=== PATIENT | female | born 1940 | race Two or more races ===

== ENCOUNTER 2018-12-16 18:56 | Inpatient (IN) | payer MEDICARE ==
[~2018-12-16] VITALS: Ht 160 cm; Wt 65.8 kg
--- NOTE | 2018-12-16 19:05 | NUR ---
ED Nurse Note: brought in by ambulance from [facility] due to patient being altered while receiving chemo tx. Patient was not acting herself per staff. Patient also has low pulse oximetry reading 90% on room air. Providing 3L via N/C. ERMD seen Pt at bedside.
--- NOTE | 2018-12-16 19:40 | NUR ---
ED Nurse Note: Blood sample sent to lab.
[2018-12-16 19:47] LABS: HEMATOCRIT 35.9 % (37.0-47.0); HEMOGLOBIN 11.5 G/DL (12.0-16.0); MEAN CORPUSCULAR VOLUME 86 FL (80-99); PLATELET COUNT 243 K/UL (150-450); RED BLOOD COUNT 4.15 M/UL (4.20-5.40); RED CELL DISTRIBUTION WIDTH 14.5 % (11.6-14.8); WHITE BLOOD COUNT 18.2 K/UL (4.8-10.8)
[2018-12-16 20:00] VITALS: BP 98/60
[2018-12-16 20:02] LABS: ANION GAP 9 mmol/L (5-15); BLOOD UREA NITROGEN 33 mg/dL (7-18); CALCIUM 9.2 MG/DL (8.5-10.1); CARBON DIOXIDE 24 MMOL/L (21-32); CHLORIDE 101 MMOL/L (98-107); CREATININE 1.4 MG/DL (0.55-1.30); POTASSIUM 3.6 MMOL/L (3.5-5.1); SODIUM 134 MMOL/L (136-145)
[2018-12-16 20:06] LABS: ALANINE AMINOTRANSFERASE 21 U/L (12-78); ALBUMIN 2.7 G/DL (3.4-5.0); ALBUMIN/GLOBULIN RATIO 0.6 (1.0-2.7); ALKALINE PHOSPHATASE 84 U/L (46-116); ASPARTATE AMINO TRANSFERASE 42 U/L (15-37); BILIRUBIN,TOTAL 0.7 MG/DL (0.2-1.0)
--- NOTE | 2018-12-16 21:00 | NUR ---
ED Nurse Note: Urine sample sent to lab.
[2018-12-16 22:04] LABS: APPEARANCE,URINE CLEAR; BILIRUBIN, URINE NEGATIVE (NEGATIVE); COLOR,URINE PALE YELLOW; GLUCOSE, URINE (UA) NEGATIVE (NEGATIVE); KETONES,URINE NEGATIVE (NEGATIVE); LEUKOCYTE ESTERASE ,URINE 3+ (NEGATIVE); NITRITE,URINE NEGATIVE (NEGATIVE); PH,URINE 5 (4.5-8.0); PROTEIN,URINE NEGATIVE (NEGATIVE); UROBILINOGEN,URINE NORMAL MG/DL (0.0-1.0)
--- NOTE | 2018-12-16 22:42 | Emergency Room Report ---
History of Present Illness General Chief Complaint: Altered Mental Status Source: Patient Present Illness HPI Patient presents emergency department today complaining acute altered mental status. Patient has a history of metastatic breast cancer. Patient was receiving an infusion herceptin and then began to develop riders. Patient was given Benadryl and Decadron and Demerol. Subsequently patient became acutely altered. EMS was contacted and patient was by her further evaluation. No other complaints are noted. Patient still was altered. On arrival although significantly improved. She still confused about dates and appear very weak. She denies any seizure activity. She seems very cold and tremulous. No evidence of focal weakness. No prior episodes of this.No other modifying factors. No other associated signs and symptoms. No other complaints were noted. 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 Hx Gastrointestinal Problems: Yes Review of Systems All Other Systems: negative except mentioned in HPI Physical Exam Vital Signs Date Time Temp Pulse Resp B/P (MAP) Pulse Ox O2 Delivery O2 Flow Rate FiO2 12/16/18 18:57 99.7 113 18 98/61 99 Room Air Sp02 EP Interpretation: reviewed, normal General Appearance: alert, moderate distress - Confused Head: atraumatic Eyes: bilateral eye normal inspection ENT: normal ENT inspection, hearing grossly normal, normal voice Neck: normal inspection, full range of motion, supple, no bony tend Respiratory: normal inspection, lungs clear, normal breath sounds, no respiratory distress, no retraction, no wheezing Cardiovascular #1: regular rate, rhythm, no edema Gastrointestinal: normal inspection, normal bowel sounds, non tender, soft, no guarding, no hernia Genitourinary: no CVA tenderness Musculoskeletal: normal inspection, back normal, normal range of motion Neurologic: normal inspection, alert, responsive, speech normal Psychiatric: judgement/insight normal, depressed affect Skin: normal inspection, normal color, no rash Medical Decision Making Diagnostic Impression: Primary Impression: Altered mental status Additional Impression: Metastatic breast cancer ER Course Patient presents emergency department today with acute altered mental status. Differential considerations include CVA, seizure, allergic reaction, altered mental status secondary to medication just name a few.Given the severity of the patient's presentation I felt this is a highly complex patient. This patient required extensive workup. Patient's laboratory workup was not impressive except for elevated white blood cell count which we secondary to stress reaction versus seizure. We'll obtain blood cultures and evaluate. Patient's head CT was negative. Chest x-ray shows large amount of masses in the lungs. This is consistent with patient's diagnosis of metastatic breast cancer. Because patient remains altered will admit the patient further evaluation. Case discussed with Dr. Herrera for admission. Labs Test 12/16/18 19:40 12/16/18 21:45 White Blood Count 18.2 K/UL (4.8-10.8) Red Blood Count 4.15 M/UL (4.20-5.40) Hemoglobin 11.5 G/DL (12.0-16.0) Hematocrit 35.9 % (37.0-47.0) Mean Corpuscular Volume 86 FL (80-99) Mean Corpuscular Hemoglobin 27.8 PG (27.0-31.0) Mean Corpuscular Hemoglobin Concent 32.2 G/DL (32.0-36.0) Red Cell Distribution Width 14.5 % (11.6-14.8) Platelet Count 243 K/UL (150-450) Mean Platelet Volume 6.2 FL (6.5-10.1) Neutrophils (%) (Auto) % (45.0-75.0) Lymphocytes (%) (Auto) % (20.0-45.0) Monocytes (%) (Auto) % (1.0-10.0) Eosinophils (%) (Auto) % (0.0-3.0) Basophils (%) (Auto) % (0.0-2.0) Differential Total Cells Counted 100 Neutrophils % (Manual) 96 % (45-75) Lymphocytes % (Manual) 1 % (20-45) Monocytes % (Manual) 3 % (1-10) Eosinophils % (Manual) 0 % (0-3) Basophils % (Manual) 0 % (0-2) Band Neutrophils 0 % (0-8) Platelet Estimate Adequate Platelet Morphology Normal Red Blood Cell Morphology Normal Prothrombin Time 11.0 SEC (9.30-11.50) Prothromb Time International Ratio 1.0 (0.9-1.1) Activated Partial Thromboplast Time 29 SEC (23-33) Sodium Level 134 MMOL/L (136-145) Potassium Level 3.6 MMOL/L (3.5-5.1) Chloride Level 101 MMOL/L (98-107) Carbon Dioxide Level 24 MMOL/L (21-32) Anion Gap 9 mmol/L (5-15) Blood Urea Nitrogen 33 mg/dL (7-18) Creatinine 1.4 MG/DL (0.55-1.30) Estimat Glomerular Filtration Rate mL/min (>60) Glucose Level 171 MG/DL (74-106) Calcium Level 9.2 MG/DL (8.5-10.1) Total Bilirubin 0.7 MG/DL (0.2-1.0) Aspartate Amino Transf (AST/SGOT) 42 U/L (15-37) Alanine Aminotransferase (ALT/SGPT) 21 U/L (12-78) Alkaline Phosphatase 84 U/L (46-116) Troponin I 0.000 ng/mL (0.000-0.056) Total Protein 7.3 G/DL (6.4-8.2) Albumin 2.7 G/DL (3.4-5.0) Globulin 4.6 g/dL Albumin/Globulin Ratio 0.6 (1.0-2.7) Urine Color Pale yellow Urine Appearance Clear Urine pH 5 (4.5-8.0) Urine Specific [place] 1.010 (1.005-1.035) Urine Protein Negative (NEGATIVE) Urine Glucose (UA) Negative (NEGATIVE) Urine Ketones Negative (NEGATIVE) Urine Blood Negative (NEGATIVE) Urine Nitrite Negative (NEGATIVE) Urine Bilirubin Negative (NEGATIVE) Urine Urobilinogen Normal MG/DL (0.0-1.0) Urine Leukocyte Esterase 3+ (NEGATIVE) Urine RBC 0-2 /HPF (0 - 2) Urine WBC 10-15 /HPF (0 - 2) Urine Squamous Epithelial Cells Few /LPF (NONE/OCC) Urine Bacteria Few /HPF (NONE) EKG Diagnostic Results Rate: tachycardiac Rhythm: NSR ST Segments: no acute changes Rhythm Strip Diag. Results EP Interpretation: yes Rate: 100 Rhythm: NSR, no PVC's, no ectopy Chest X-Ray Diagnostic Results Chest X-Ray Diagnostic Results : Chest X-Ray Ordered: Yes # of Views/Limited/Complete: 1 View Indication: Other - Altered mental status EP Interpretation: Yes Interpretation: other - Multiple masses in lung. Normal heart size. Normal bone structure Impression: Other - Metastatic lung cancer Electronically Signed by: Electronically signed by Ryan Chaney MD CT/MRI/US Diagnostic Results CT/MRI/US Diagnostic Results : Imaging Test Ordered: Head CT: Negative Last Vital Signs Date Time Temp Pulse Resp B/P (MAP) Pulse Ox O2 Delivery O2 Flow Rate FiO2 12/16/18 18:57 99.7 113 18 98/61 99 Room Air Status: improved Disposition: ADMITTED INPATIENT Condition: Serious Referrals: NOT CHOSEN IPA/,REFERRING (PCP) Ryan Chaney MD Dec 16, 2018 22:42
[2018-12-16] MEDS ORDERED: Aztreonam Inj 2 GM in NS 110 ML IV SCH (22:45)
[2018-12-16] MEDS: Aztreonam Inj 2 GM in NS 110 ML IVPB SCH (23:06)
[2018-12-16] MEDS ORDERED: HYDROcodone/Acetamin 10/325 tab ORAL PRN (23:45)
[2018-12-16] MEDS ORDERED: HYDROmorphone 1mg/ml Carpuject IVP PRN (23:45)
--- NOTE | 2018-12-17 00:12 | NUR ---
ED Nurse Note: Report given to PARRISH aSnz. Pt will keep all belongings with her, Pt has $3 dollars. Pt is AO x 4times, VSS, on N/C 3L. Pt admit to room 408-2.
[2018-12-17 00:15] VITALS: BP 107/68
[2018-12-17 01:00] VITALS: BP 140/69
--- NOTE | 2018-12-17 01:00 | NUR ---
NURSE NOTES: ADMITTED 78 YEAR OLD FEMALE TO ROOM 408 BED 2 VIA GURNEY FROM EMERGENCY DEPARTMENT WITH DIAGNOSIS ALTERED MENTAL STATUS. PATIENT ALERT/ORIENTED WITH PERIODS OF CONFUSION/FORGETFULNESS, ORIENTATED PATIENT TO ROOM/ENVIRONMENT. DENIES PAIN. PATIENT NOTED WITH DRESSING TO RIGHT BREAST SECONDARY TO BREAST CA WITH METS TO LUNGS. IV IN TACT TO RIGHT FOREARM/GAUGE 24, NO REDNESS/SWELLING NOTED. NO SIGNS AND SYMPTOMS OF ACUTE CARDIO RESPIRATORY DISTRESS/SHORTNESS OF BREATH, DENIES CHEST PAIN, NO PERIPHERAL EDEMA NOTED. ABLE TO MOVE UPPER/LOWER EXTREMITIES AD KULWANT WITHOUT DIFFICULTY. NO COMPLAINT OF GI DISCOMFORT, NO NAUSEA/VOMITING. SIDE RAILS UP X3/BED IN LOWEST POSITION FOR SAFETY. BED ALARM ACTIVATED. RESTING COMFORTABLY. NAD.
[2018-12-17] MEDS ORDERED: ZOFRAN4 M3 ORAL (02:23)
[2018-12-17] MEDS ORDERED: TESSALON PERLE100 MG ORAL (02:23)
[2018-12-17] MEDS ORDERED: COZAAR50 MG ORAL (02:23)
[2018-12-17] MEDS ORDERED: VENTOLIN HFA18 GM INH (02:23)
[2018-12-17] MEDS ORDERED: LOPERAMIDE2 MG PO (02:23)
[2018-12-17 04:00] VITALS: BP 135/57
[2018-12-17 07:20] LABS: HEMATOCRIT 37.7 % (37.0-47.0); HEMOGLOBIN 12.2 G/DL (12.0-16.0); MEAN CORPUSCULAR VOLUME 87 FL (80-99); PLATELET COUNT 234 K/UL (150-450); RED BLOOD COUNT 4.36 M/UL (4.20-5.40); RED CELL DISTRIBUTION WIDTH 14.7 % (11.6-14.8); WHITE BLOOD COUNT 4.5 K/UL (4.8-10.8)
[2018-12-17 07:33] LABS: ANION GAP 8 mmol/L (5-15); BLOOD UREA NITROGEN 28 mg/dL (7-18); CALCIUM 9.5 MG/DL (8.5-10.1); CARBON DIOXIDE 25 MMOL/L (21-32); CHLORIDE 105 MMOL/L (98-107); CREATININE 1.1 MG/DL (0.55-1.30); POTASSIUM 4.5 MMOL/L (3.5-5.1); SODIUM 138 MMOL/L (136-145)
[2018-12-17 08:00] VITALS: BP 140/67
[2018-12-17] MEDS ORDERED: Cefepime HCl 1 GM in D5W 55 ML IVPB ONE (09:00)
[2018-12-17] MEDS: Aztreonam Inj 2 GM in NS 110 ML IVPB SCH ×3 (09:03→23:25)
[2018-12-17] MEDS: Heparin 5000 units/ml inj SUBQ SCH ×2 (09:06→21:00)
--- NOTE | 2018-12-17 10:00 | NUR ---
NURSE NOTES: pt is alert and oriented x4. Able to make needs with no periods of confusion nor disorientation. All due meds given as ordered. denies any pain at this time. Breathing regular and unlabored. will continue to monitor
--- NOTE | 2018-12-17 12:45 | History and Physical Report ---
DATE OF ADMISSION: 12/16/2018 REASON FOR ADMISSION: Altered mental status. HISTORY OF PRESENT ILLNESS: The patient is an 78-year-old female presents with acute change in mental status. The patient with a history of metastatic breast cancer. The patient apparently received an infusion with chemotherapy and then began to develop significant rigors. The patient was given Decadron, Demerol, and Benadryl, but became more altered. The patient was transferred to the emergency room for further evaluation. The patient remained altered in the emergency room, although did improve. No seizures. No falls. No head trauma. The patient's care discussed and reviewed. No other complaints at present. The patient is now admitted for further care and management further evaluation. PAST MEDICAL HISTORY: Hypertension, metastatic breast cancer, prior history of breast surgery. SOCIAL HISTORY: Nonsmoker and nondrinker. REVIEW OF SYSTEMS: All 10 points reviewed and otherwise negative with the exception of metastatic breast cancer to the lung. PHYSICAL EXAMINATION: GENERAL: An elderly female, in no acute distress. VITAL SIGNS: Blood pressure 135/57, pulse 77, respirations 18, and temperature 98.2. HEENT: Negative. Extraocular movements are grossly intact. NECK: Supple. LUNGS: Clear and symmetric. CARDIAC: S1, S2. Regular rate and rhythm without murmurs, rubs, or gallops. ABDOMEN: Soft, nontender, nondistended. EXTREMITIES: No cyanosis, clubbing, or edema. NEUROLOGIC: Grossly nonfocal. LABORATORY DATA: Reviewed. White cell count 4.5, previously 18.2. The patient did receive Decadron. Electrolytes, BUN 28, creatinine 1.1, otherwise negative. Albumin is 2.7. The EKG with sinus tachycardia. Chest x-ray with multiple metastatic findings. CT of the head reported to be negative. IMPRESSION: Acute encephalopathy of unclear etiology, metastatic breast cancer, possible acute renal failure, severe protein-calorie malnutrition, leukocytosis, possibly steroid induced. RECOMMENDATIONS: Supportive care. Consider empiric antibiotics. IV hydration. Pain control. Monitor clinically and recommend. The patient's medications from the outpatient reviewed. If needed, we will provide Zofran. Currently, blood pressure appears to be stable and does not require any antihypertensives. We will discharge the patient home once stable and reassess and recommend further. Efrem Herrera M.D. DR: CALDERON JOB#: [id number] CC:
--- NOTE | 2018-12-17 17:00 | NUR ---
NURSE NOTES: pt stated that Dr. lagos told her that she might get discharged today. no discharge order as of now. Asked dr. lagos to get discharge order. Per Md, it's okay to discharge pt if pt's daughter agrees. Per patient, don't call the daughter yet until she talks to her daughter first. Informed pt that there's no discharge order as of now and that she will be staying until the doctor clears the pt.
--- NOTE | 2018-12-17 19:19 | NUR ---
HAND-OFF: Report given to MAKEDA Salcido.
[2018-12-17 20:00] VITALS: BP 143/74
[2018-12-18] VITALS: BP 124/83
[2018-12-18 04:00] VITALS: BP 153/72
[2018-12-18] MEDS: Aztreonam Inj 2 GM in NS 110 ML IVPB SCH (06:23)
--- NOTE | 2018-12-18 07:10 | NUR ---
HAND-OFF: Report given to MAKEDA Bee.
[2018-12-18 08:00] VITALS: BP 143/62
--- NOTE | 2018-12-18 08:32 | NUR ---
NURSE NOTES: Patient is alert and oriented X4. Patient sitting up, eating breakfast. Side rails are up X2, bed is locked, in lowest position, and call light is within reach. Will continue to monitor.
[2018-12-18] MEDS ORDERED: Cefepime HCl 500 MG in D5W 55 ML IV SCH (09:00)
[2018-12-18] MEDS: Heparin 5000 units/ml inj SUBQ SCH (09:00)
--- NOTE | 2018-12-18 09:57 | General Progress Note ---
Assessment/Plan Assessment/Plan IMPRESSION: Acute encephalopathy , likely toxic metabolic- resolved, metastatic breast cancer, possible acute renal failure, severe protein-calorie malnutrition, leukocytosis, likely steroid induced. PLAN dc home stable home health d/w daughter has caregiver at home impression, plan, and exam edited and reviewed in detail care discussed with RN Subjective Allergies: Coded Allergies: PENICILLINS (Verified Allergy, Unknown, 12/16/18) Uncoded Allergies: SULFA (Allergy, Unknown, 12/16/18) Subjective doing well per daughter, back to baseline no acute issues overnight Objective Last 24 Hour Vital Signs Date Time Temp Pulse Resp B/P (MAP) Pulse Ox O2 Delivery O2 Flow Rate FiO2 12/18/18 04:00 97.7 79 18 153/72 (99) 95 12/18/18 00:00 97.1 80 16 124/83 (97) 94 12/17/18 22:00 Room Air 12/17/18 20:00 97.8 84 16 143/74 (97) 95 Intake and Output 12/17/18 12/18/18 19:00 07:00 Intake Total 300 ml Balance 300 ml Intake Oral 300 ml # Voids 3 2 Labs Test 12/16/18 19:40 12/16/18 21:45 12/17/18 05:20 White Blood Count 18.2 K/UL (4.8-10.8) 4.5 K/UL (4.8-10.8) Red Blood Count 4.15 M/UL (4.20-5.40) 4.36 M/UL (4.20-5.40) Hemoglobin 11.5 G/DL (12.0-16.0) 12.2 G/DL (12.0-16.0) Hematocrit 35.9 % (37.0-47.0) 37.7 % (37.0-47.0) Mean Corpuscular Volume 86 FL (80-99) 87 FL (80-99) Mean Corpuscular Hemoglobin 27.8 PG (27.0-31.0) 27.9 PG (27.0-31.0) Mean Corpuscular Hemoglobin Concent 32.2 G/DL (32.0-36.0) 32.2 G/DL (32.0-36.0) Red Cell Distribution Width 14.5 % (11.6-14.8) 14.7 % (11.6-14.8) Platelet Count 243 K/UL (150-450) 234 K/UL (150-450) Mean Platelet Volume 6.2 FL (6.5-10.1) 6.6 FL (6.5-10.1) Neutrophils (%) (Auto) % (45.0-75.0) % (45.0-75.0) Lymphocytes (%) (Auto) % (20.0-45.0) % (20.0-45.0) Monocytes (%) (Auto) % (1.0-10.0) % (1.0-10.0) Eosinophils (%) (Auto) % (0.0-3.0) % (0.0-3.0) Basophils (%) (Auto) % (0.0-2.0) % (0.0-2.0) Differential Total Cells Counted 100 100 Neutrophils % (Manual) 96 % (45-75) 85 % (45-75) Lymphocytes % (Manual) 1 % (20-45) 13 % (20-45) Monocytes % (Manual) 3 % (1-10) 2 % (1-10) Eosinophils % (Manual) 0 % (0-3) 0 % (0-3) Basophils % (Manual) 0 % (0-2) 0 % (0-2) Band Neutrophils 0 % (0-8) 0 % (0-8) Platelet Estimate Adequate Adequate Platelet Morphology Normal Normal Red Blood Cell Morphology Normal Normal Prothrombin Time 11.0 SEC (9.30-11.50) Prothromb Time International Ratio 1.0 (0.9-1.1) Activated Partial Thromboplast Time 29 SEC (23-33) Sodium Level 134 MMOL/L (136-145) 138 MMOL/L (136-145) Potassium Level 3.6 MMOL/L (3.5-5.1) 4.5 MMOL/L (3.5-5.1) Chloride Level 101 MMOL/L (98-107) 105 MMOL/L (98-107) Carbon Dioxide Level 24 MMOL/L (21-32) 25 MMOL/L (21-32) Anion Gap 9 mmol/L (5-15) 8 mmol/L (5-15) Blood Urea Nitrogen 33 mg/dL (7-18) 28 mg/dL (7-18) Creatinine 1.4 MG/DL (0.55-1.30) 1.1 MG/DL (0.55-1.30) Estimat Glomerular Filtration Rate mL/min (>60) mL/min (>60) Glucose Level 171 MG/DL (74-106) 153 MG/DL (74-106) Calcium Level 9.2 MG/DL (8.5-10.1) 9.5 MG/DL (8.5-10.1) Total Bilirubin 0.7 MG/DL (0.2-1.0) Aspartate Amino Transf (AST/SGOT) 42 U/L (15-37) Alanine Aminotransferase (ALT/SGPT) 21 U/L (12-78) Alkaline Phosphatase 84 U/L (46-116) Troponin I 0.000 ng/mL (0.000-0.056) Total Protein 7.3 G/DL (6.4-8.2) Albumin 2.7 G/DL (3.4-5.0) Globulin 4.6 g/dL Albumin/Globulin Ratio 0.6 (1.0-2.7) Urine Color Pale yellow Urine Appearance Clear Urine pH 5 (4.5-8.0) Urine Specific [place] 1.010 (1.005-1.035) Urine Protein Negative (NEGATIVE) Urine Glucose (UA) Negative (NEGATIVE) Urine Ketones Negative (NEGATIVE) Urine Blood Negative (NEGATIVE) Urine Nitrite Negative (NEGATIVE) Urine Bilirubin Negative (NEGATIVE) Urine Urobilinogen Normal MG/DL (0.0-1.0) Urine Leukocyte Esterase 3+ (NEGATIVE) Urine RBC 0-2 /HPF (0 - 2) Urine WBC 10-15 /HPF (0 - 2) Urine Squamous Epithelial Cells Few /LPF (NONE/OCC) Urine Bacteria Few /HPF (NONE) Height (Feet): 5 Height (Inches): 3.00 Weight (Pounds): 145 Objective GENERAL: An elderly female, in no acute distress. HEENT: Negative. Extraocular movements are grossly intact. NECK: Supple. LUNGS: Clear and symmetric. CARDIAC: S1, S2. Regular rate and rhythm without murmurs, rubs, or gallops. ABDOMEN: Soft, nontender, nondistended. EXTREMITIES: No cyanosis, clubbing, or edema. NEUROLOGIC: Grossly nonfocal. very alert and oriented; taking po Efrem Herrera MD Dec 18, 2018 09:56
--- NOTE | 2018-12-18 12:02 | NUR ---
NURSE NOTES: Patient discharged Home with Home Health. Patient discharged via private vehicle. Daughter Rita colon. IV removed. Belongings reviewed and accounted for. Discharge instructions given to patient. Patient stable upon discharge.
--- NOTE | 2018-12-21 12:28 | Discharge Summary ---
Discharge Summary Discharge Summary _ DATE OF ADMISSION: 12/16/2018 DATE OF DISCHARGE: 12/18/2018 DISCHARGED BY: Dr. Herrera REASON FOR ADMISSION: 78 years old female with past medical history of hypertension, metastatic breast cancer, presented to emergency department with altered mental status. During the chemotherapy she also received Benadryl ,Decadron and Demerol and became acutely altered. Paramedics were contacted, and patient was presented to the emergency room for further evaluation. Upon evaluation patient was still altered , however somewhat improved. She was confused about the dates and appeared to be very weak . She denied any seizure activity . She was cold and tremulous , but no evidence of focal weakness. Upon evaluation patient was tachycardic with heart rate 113, low blood pressure 98/61, and low-grade fever 99.7. Chest x-ray demonstrated multiply nodular densities throughout the lungs , probably representing multiply masses, given history of metastatic breast cancer. Laboratory workup revealed leukocytosis WBC 18.2, hemoglobin 11.5. Platelet count 243. BUN 33 creatinine 1.4. Glucose 171. Troponin negative. Albumin 2.7. Urinalysis revealed evidence of pyuria 10-15, few bacteria, +3 leukocyte esterase. Patient was admitted for further management. HOSPITAL COURSE: Patient admitted to medical surgical floor. Patient started on IV hydration. Patient started on empiric antibiotics. Pain management was addressed. Antiemetic provided as needed. Blood pressure was closely monitored, no need for antihypertensive during this admission. Protein supplement implemented in diet. Review of urine culture revealed gram-negative rods. Blood culture were negative. DVT prophylaxis provided. Hemodynamic status was closely monitored. Supplemental oxygen provided as needed to keep pulse oximetry above 92%. Pulmonary toilet was on standby. With IV hydration blood pressure stabilized. Patient became more awake and alert. Renal parameters and electrolytes were closely monitored, electrolytes corrected as needed, nephrotoxins were avoided. Prior to discharge creatinine from 1.4 down to 1.1 and BUN from 33 down to 28. Leukocytosis resolved. Urine culture revealed gram-negative rods with colony count less than 10,000. Antibiotics stopped. Hemoglobin and hematocrit remained stable. Pain management was addressed as needed. Supportive care provided. Bowel regimen instituted. Patient clinically stabilized and was ready for discharge home with home health services. FINAL DIAGNOSES: Acute encephalopathy, likely toxic metabolic -resolved Metastatic breast cancer Probable acute kidney injury - resolved Severe protein calorie malnutrition Leukocytosis, possibly steroid-induced -resolved DISCHARGE MEDICATIONS: See Medication Reconciliation list. DISCHARGE INSTRUCTIONS: Patient was discharged home with home health services. Follow up with primary care provider in one week. I have been assigned to dictate discharge summary for this account. I was not involved in the patient's management. Charito Juárez NP Dec 21, 2018 12:28
== END 2018-12-18 12:00 | disposition home health service (06) | DRG 91 ==
LOC: EDBD 18:56 → EMR 21:20 → 4E 21:40 → EDBEDREQ 22:19
DX: G92 Toxic encephalopathy (principal); E43 Unspecified severe protein-calorie malnutrition; N17.9 Acute kidney failure, unspecified; C79.9 Secondary malignant neoplasm of unspecified site; C50.919 Malignant neoplasm of unspecified site of unspecified female breast; T45.1X5A Adverse effect of antineoplastic and immunosuppressive drugs, initial encounter; Z68.25 Body mass index [BMI] 25.0-25.9, adult; I10 Essential (primary) hypertension; Z88.0 Allergy status to penicillin; Z88.2 Allergy status to sulfonamides; D72.829 Elevated white blood cell count, unspecified; T38.0X5A Adverse effect of glucocorticoids and synthetic analogues, initial encounter
CPT/HCPCS: 36415; 70450; 71045; 80048; 80053; 81003; 84484; 85007; 85025; 85610; 85730; 87040; 87086; 93005; 99285